=== PATIENT | female | born 1960 | race Caucasian/White ===

== ENCOUNTER 2024-03-08 22:22 | Inpatient (IN) ==
[2024-03-08] MEDS: OPTIRAY 320 125ml IV ONE (22:52)
[2024-03-08 23:02] LABS: Hematocrit (blood only) 35.5 % (37.0-47.0); Mean Corpuscular Hemoglobin 30.2 pg (25.0-34.0); Mean Corpuscular Hgb Conc 33.8 g/dL (32.0-36.0); Mean Corpuscular Volume 89.4 fL (80.0-100.0); Platelet Count 211 K/uL (130-400); RDW Standard Deviation 42.5 fL (36.4-46.3); Red Blood Count 3.97 M/uL (4.20-5.40); White Blood Count 6.41 K/ul (4.8-10.8)
[2024-03-08 23:05] LABS: iSTAT Creatinine 0.9 mg/dl (0.6-1.3); iSTAT Hemoglobin 11.9 g/dl (12.0-16.0); iSTAT Ionized Calcium 1.19 mmol/l (1.12-1.32); iSTAT Potassium 3.8 mmol/L (3.3-5.0)
[2024-03-08 23:18] LABS: Albumin Globulin Ratio 1.8 (0.9-2); Albumin Level 4.7 gm/dl (3.4-5.0); BUN Creatinine Ratio 15.3 (10-20); Bilirubin,Total 1.8 mg/dl (0.2-1.0); Calcium 9.5 mg/dl (8.6-10.3); Creatinine Clr Calc Pharmacy 66.8 ml/min; Est GFR (African American) 82.8 ml/min; Est GFR (Non-African American) 71.4 ml/min; Globulin 2.6 gm/dl (2.5-4.0); Magnesium 2.1 mg/dl (1.7-2.4); Potassium 3.8 mmol/L (3.5-5.1); Total Protein 7.3 gm/dl (6.0-8.3)
--- NOTE | 2024-03-08 23:19 | CT Scan Report ---
Exam(s): CT HEAD Without Contrast EXAM: CT Head Without Intravenous Contrast CLINICAL HISTORY: Neuro deficit, acute, stroke suspected. TECHNIQUE: Axial computed tomography images of the head/brain without intravenous contrast. CTDI is 36.31 mGy and DLP is 624.41 mGy-cm. Automated exposure control was utilized for the study. A dose lowering technique was utilized adhering to the principles of ALARA. COMPARISON: CT head 01/22/2023. FINDINGS: Brain: Cavernous and supraclinoid left internal carotid artery stent. Ventricle and sulci normal in size and configuration for age. No acute stroke. No acute hemorrhage. No abnormal extra-axial fluid collection. Ventricles: No hydrocephalus. No midline shift. Bones/joints: Unremarkable. No acute fracture. Soft tissues: Unremarkable. Sinuses: Unremarkable as visualized. No acute sinusitis. IMPRESSION: No acute stroke or hemorrhage. Cavernous and supraclinoid left internal carotid artery stent. Communications: Call Doctor Stroke Electronically signed by: Shahab Diaz M.D. 03/08/24 23:18 PM
[2024-03-08 23:35] LABS: Partial Thromboplastin Time 28 Seconds (21-31); Prothrombin Time 11.3 Seconds (9.0-12.0)
--- NOTE | 2024-03-08 23:39 | Emergency Department Note ---
Impression & Plan Stroke-like symptoms Admit to the [facility] ED Provider Note NAME: MUKUL MONTGOMERY AGE: 64 SEX: Female INFORMANT: Patient ED PROVIDER(S): Alma Rosa Tran DO CHIEF COMPLAINT: Right hand tingling and lightheadedness PLAN: Disposition: Admit to the [facility] MEDICAL DECISION MAKING: this is a 64-year-old female patient who presents to the emergency department after a sudden onset at 6:15 PM this evening of lightheadedness, right hand tingling and nausea. Patient has a history of internal carotid aneurysm with stent placement in April 2022. She was placed on Plavix after the procedure. 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 She had neurosurgical procedure in [place] at that time and was not left with any deficits. She was discharged to home on Brilinta and aspirin. Patient has been asymptomatic up until tonight when she developed these symptoms. On my evaluation of the patient, she continued to complain of lightheadedness/dizziness and a tingling sensation in both of her hands. On my physical exam, I noted the patient had right leg weakness and right arm drift. She was treated with IV Zofran for nausea. Laboratory workup was unremarkable. CT scan of the brain and CT angiograms of the brain and neck revealed no new acute findings. The patient was initially made a stroke alert. I opted not to use the [employer] telestroke program because the patient receives all of her care at [facility] and had recently been admitted to the ICU. The family was in agreement. I contacted the [facility] neurologist on-call and spoke with Dr. Jauregui who was able to access her chart. I reviewed the case with him and he felt the best course of action would be to admit the patient to [facility] and perform MRI of the brain and continue the patient on the Brilinta and aspirin. I [facility] the [facility] and [facility] will evaluate for further inpatient care. Care/management discussed with: Dr. Fairchild from neurology in [place], the corporate tax manager, the stat rad radiologist on 2 different occasions, [facility] here at [facility] Triage Nursing notes: reviewed and agree with them. Vital Signs: reviewed and unremarkable Additional History obtained from: Patient's daughter who was at the bedside Chronic Medical/Social Conditions affecting care: Carotid and cerebral aneurysm with stent placement at [facility] on Brilinta and aspirin; recent recurrent embolic stroke with thrombectomy Differential Diagnosis: Recurrent stroke, TIA, hypoglycemia Diagnostics, independently interpreted by me: ECG: normal sinus rhythm at a rate of [address] segment elevation or signs of ischemia. There is no ectopy. Cardiac Monitoring: Normal sinus rhythm at a rate of 75 Imaging studies: CT brain: See stat rad report CTA of the brain: See stat rad report CTA of the neck: See stat rad report HPI: 64 year old Female arrives for evaluation of stroke symptoms. Around 6:15 PM this evening, the patient was shopping when she noted some lightheadedness and right hand tingling. She then became nauseated and dizzy. Patient went home and took a shower and realized symptoms or not resolving. She has significant history of stroke and presents here for evaluation.. PAST MEDICAL HISTORY: See MDM, PAST SURGICAL HISTORY: Recent thrombectomy, [] SOCIAL HISTORY: Denies any drug or alcohol use HOME MEDICATIONS: See list ALLERGIES: None VITALS: See Below PHYSICAL EXAMINATION: HEENT: Head - normocephalic and atraumatic. Pupils are equal, round, and reactive to light. Extraocular eye muscles are intact and sclera are anicteric. Ears - bilaterally patent canals with noninjected tympanic membranes and no evidence of hemotympanum. Nose - moist nasal mucosa without discharge. Mouth - moist buccal mucosa. Oropharynx is nonerythematous and there is no tonsillar exudate or edema noted. Neck: Supple; no JVD, nuchal rigidity, cervical lymphadenopathy, or auscultated bruits. Heart: Regular rate and rhythm. There is a normal S1 and S2 with no murmurs, clicks, or gallops appreciated. Lungs: Clear to auscultation bilaterally with no wheezes, rales, or rhonchi. Abdomen: Soft, completely nontender, nondistended, with good bowel sounds. There are no palpable pulsatile masses or hepatosplenomegaly. There is no guarding, rigidity, or rebound noted. Extremities: No evidence of cyanosis, clubbing, or edema. There are easily palpable peripheral pulses. Neuro:The patient is awake and alert, oriented to day, time, and place. Muscle strength is 5/5 in all 4 extremities except for the right lower extremity where the patient is barely able to lift the right leg off of the bed. Muscle strength of the right hip is 1/5. She has barely able to bend the right knee. She has decreased sensation in the right hand. The patient has equal guide domestic tour strength and equal pedal push and pull. There are no cerebellar signs. Cranial nerves II through XII are grossly intact. Patient has positive pronator drift in the right upper extremity. She has normal [id number] with no past- pointing. Emergency department treatment: monitoring manager, IV Zofran Emergency department course: The patient was evaluated in room B-9. A complete history and physical was performed. Laboratory studies were drawn as above. A stroke alert was called. The patient went emergently for CT scan of the brain, CT angiogram of the brain and neck. Upon returning from radiology, the patient had Zofran for nausea. I immediately evaluated the patient and did a complete neurological exam. I opted to contact [facility] neurology on the patient's behalf to review her complicated case. I discussed the case with the [facility] Hospitalist and they will evaluate for further inpatient care. Past Med/Surg History Problem List (Updated 03/09/24 @ 15:51 by Alma Rosa Tran DO) Stroke-like symptoms (Acute) COVID-19 (Acute) Back strain (Acute) Spasm of back muscles (Acute) Cervical vertebral fracture COVID-19 (Acute) Medical History Back strain Cervical vertebral fracture Spasm of back muscles Social History Smoking Status: Never smoker Tobacco Type: Cigarettes Hx Alcohol Use: No Hx Substance Use: No Preferred Language: Martiniquais Communication Ability: Effective Creative Perfumer Required: No Beliefs That Will Affect Care: None Current Living Situation: Family Other Information That Helps Us Care for You: No Feels Safe at Home: Yes Safety Concerns: Feels Safe At This Time Assistive Devices: Glasses Allergies Allergies Allergy/AdvReac Type Severity Reaction Status Date / Time No Known Allergies Allergy Verified 03/09/24 00:18 Home Meds Home Medications Medication Instructions Recorded Confirmed acetaminophen 325 mg tablet 650 mg PO Q6H PRN Pain 03/09/24 03/09/24 (Tylenol) aspirin 81 mg chewable tablet 81 mg PO DAILY 03/09/24 03/09/24 atorvastatin 40 mg tablet 40 mg PO QPM 03/09/24 03/09/24 [id number]-[id number]-csvliqin 1 tab PO Q4H PRN Headache 03/09/24 03/09/24 50 mg-325 mg-40 mg tablet calcium carbonate 600 mg-vitamin 1 tab PO DAILY 03/09/24 03/09/24 D3 10 mcg (400 unit) tablet (Calcium 600 + D(3)) cholecalciferol (vitamin D3) 25 25 mcg PO DAILY 03/09/24 03/09/24 mcg (1,000 unit) capsule (Vitamin D3) morphine 15 mg immediate release 15 mg PO Q6H PRN Pain 03/09/24 03/09/24 tablet morphine 15 mg tablet,extended 15 mg PO Q12H PRN Pain 03/09/24 03/09/24 release ondansetron HCl 4 mg tablet 4 mg PO Q8H PRN NAUSEA/VOMITING 03/09/24 03/09/24 riboflavin (vitamin B2) 400 mg 400 mg PO DAILY 03/09/24 03/09/24 tablet ticagrelor 90 mg tablet (Brilinta) 90 mg PO BID 03/09/24 03/09/24 venlafaxine 37.5 mg 37.5 mg PO QAM 03/09/24 03/09/24 capsule,extended release 24 hr Results & Data (ED) Vital Signs Vital Signs - 24 hr 03/08/24 22:29 03/08/24 22:34 03/08/24 22:34 Temperature 36.1 C L Temperature Source Temporal Artery Scan Pulse Rate 74 77 Pulse Rate [Apical] Pulse Rhythm Regular Pulse Rhythm [Apical] Pulse Strength [Apical] Respiratory Rate 16 18 Respiratory Effort / Characteristics Non-Labored Spontaneous Respiratory Depth Normal Respiratory Pattern Regular Blood Pressure 121/84 Blood Pressure [Right Arm] Blood Pressure Mean 96 Blood Pressure Mean [Right Arm] Blood Pressure Position [Right Arm] Pulse Oximetry 96 95 95 Oxygen Delivery Method Room Air Room Air Room Air Sepsis Recent Fever Within 48 Hours No Sepsis New/Unexplained Change in Mental Status No Sepsis Action Taken by Nursing No Action Required 03/08/24 23:02 03/08/24 23:06 03/09/24 01:54 Temperature Temperature Source Pulse Rate 76 Pulse Rate [Apical] 79 77 Pulse Rhythm Pulse Rhythm [Apical] Regular Regular Pulse Strength [Apical] Normal Normal Respiratory Rate 18 18 Respiratory Effort / Characteristics Non-Labored Spontaneous Non-Labored Spontaneous Respiratory Depth Normal Normal Respiratory Pattern Regular Regular Blood Pressure Blood Pressure [Right Arm] 131/80 122/75 Blood Pressure Mean Blood Pressure Mean [Right Arm] 97 90 Blood Pressure Position [Right Arm] Lying Lying Pulse Oximetry 96 98 Oxygen Delivery Method Room Air Room Air Sepsis Recent Fever Within 48 Hours Sepsis New/Unexplained Change in Mental Status Sepsis Action Taken by Nursing 03/09/24 02:30 Temperature Temperature Source Pulse Rate Pulse Rate [Apical] 67 Pulse Rhythm Pulse Rhythm [Apical] Regular Pulse Strength [Apical] Normal Respiratory Rate 18 Respiratory Effort / Characteristics Non-Labored Spontaneous Respiratory Depth Normal Respiratory Pattern Regular Blood Pressure Blood Pressure [Right Arm] 121/82 Blood Pressure Mean Blood Pressure Mean [Right Arm] 95 Blood Pressure Position [Right Arm] Lying Pulse Oximetry 98 Oxygen Delivery Method Room Air Sepsis Recent Fever Within 48 Hours Sepsis New/Unexplained Change in Mental Status Sepsis Action Taken by Nursing Laboratory Data 03/09/24 05:46 03/09/24 05:46 Lab Results 03/08/24 03/08/24 Range/Units 22:46 22:52 WBC 6.41 (4.8-10.8) K/ul RBC 3.97 L (4.20-5.40) M/uL Hgb 12.0 (12.0-16.0) g/dl POC Hgb 11.9 L (12.0-16.0) g/dl Hct 35.5 L (37.0-47.0) % POC Hct 35 L (37-47) % MCV 89.4 (80.0-100.0) fL MCH 30.2 (25.0-34.0) pg MCHC 33.8 (32.0-36.0) g/dL RDW Std Deviation 42.5 (36.4-46.3) fL RDW Coeff of Marcela 13.0 (11.5-14.5) % Plt Count 211 (130-400) K/uL MPV 10.0 (9.4-12.4) fL PT 11.3 (9.0-12.0) Seconds INR 1.0 (0.9-1.1) APTT 28 (21-31) Seconds PTT Ratio 1.0 POC Sodium 136 (135-144) mmol/L Sodium 134 L (136-145) mmol/L POC Potassium 3.8 (3.3-5.0) mmol/L Potassium 3.8 (3.5-5.1) mmol/L POC Chloride 102 (101-112) mmol/L Chloride 103 (98-107) mmol/L Carbon Dioxide 24 (21-32) mmol/L POC Total CO2 22 L (24-31) mmol/L Anion Gap 7 (3-11) POC Anion Gap 17.0 (16-25) mmol/L POC BUN 12 (7-18) mg/dl BUN 13 (6-23) mg/dl Creatinine 0.85 (0.6-1.2) mg/dl POC Creatinine 0.9 (0.6-1.3) mg/dl Est Cr Clr Drug Dosing 66.8 ml/min Est GFR ( Amer) 82.8 ml/min Est GFR (Non-Af Amer) 71.4 ml/min BUN/Creatinine Ratio 15.3 (10-20) Glucose 132 H (70-99(Fasting)) mg/dl POC Glucose (other) 126 H (70-99) mg/dl Calcium 9.5 (8.6-10.3) mg/dl POC Ioniz Calcium Saroj 1.19 (1.12-1.32) mmol/l Magnesium 2.1 (1.7-2.4) mg/dl Total Bilirubin 1.8 H (0.2-1.0) mg/dl AST 23 (13-39) U/L ALT 15 (7-52) U/L Alkaline Phosphatase 63 (34-104) U/L Total Protein 7.3 (6.0-8.3) gm/dl Albumin 4.7 (3.4-5.0) gm/dl Globulin 2.6 (2.5-4.0) gm/dl Albumin/Globulin Ratio 1.8 (0.9-2) Administered Medications Aspirin (Aspirin 81 Mg Ectab) 81 mg PO DAILY RAFAL Stop: 04/08/24 08:59 Last Admin: 03/09/24 08:29 Dose: 81 mg Documented By: KT Calcium/Vitamin D (Calcium 600mg + Vit D 400 Iu Tab) 1 tab PO DAILY RAFAL Stop: 04/08/24 08:59 Last Admin: 03/09/24 08:29 Dose: 1 tab Documented By: NELL Sodium Chloride (Nss) 1,000 mls @ 80 mls/hr IV .[id number] RAFAL Stop: 03/09/24 16:26 Last Admin: 03/09/24 05:14 Dose: 80 mls/hr Documented By: LOLY Ticagrelor (Ticagrelor 90 Mg Tab) 90 mg PO BID RAFAL Stop: 04/08/24 08:59 Last Admin: 03/09/24 08:29 Dose: 90 mg Documented By: NELL Venlafaxine HCl (Venlafaxine Hcl Xr 37.5 Mg Capxr) 37.5 mg PO QAM RAFAL Stop: 04/08/24 08:59 Last Admin: 03/09/24 08:29 Dose: 37.5 mg Documented By: NELL Vitamin D (Cholecalciferol 25 Mcg (1000 Units) Tab) 25 mcg PO DAILY RAFAL Stop: 04/08/24 08:59 Last Admin: 03/09/24 08:29 Dose: 25 mcg Documented By: NELL Discontinued Medications Gadobutrol (Gadobutrol 65ml Vial) 8.5 ml IV ONCE ONE Stop: 03/09/24 09:38 Last Admin: 03/09/24 09:37 Dose: 8.5 ml Documented By: ТАТЬЯНА Hydroxyzine HCl (Hydroxyzine Hcl 25 Mg Tab) 25 mg PO NOW STA Stop: 03/09/24 04:57 Last Admin: 03/09/24 05:14 Dose: 25 mg Documented By: LOLY Hydroxyzine HCl (Hydroxyzine Hcl 25 Mg Tab) 25 mg PO NOW STA Stop: 03/09/24 05:19 Last Admin: 03/09/24 06:46 Dose: Not Given Documented By: MERARI Ioversol (Optiray 320 125ml) 125 ml IV ONCE ONE Stop: 03/08/24 22:52 Last Admin: 03/08/24 22:52 Dose: 118 ml Documented By: DONNA Melatonin (Melatonin 3 Mg Tab) 3 mg PO NOW STA Stop: 03/09/24 02:45 Last Admin: 03/09/24 04:44 Dose: Not Given Documented By: MERARI Ondansetron HCl (Ondansetron Inj 2 Mg/Ml 2 Ml Vial) 4 mg IV NOW STA Stop: 03/08/24 23:30 Last Admin: 03/08/24 23:51 Dose: 4 mg Documented By: IDD Imaging Data Radiologist's Impression: Chest X-Ray 03/08/24 22:33 XR chest 1V portable CLINICAL HISTORY: stroke alert TECHNIQUE: Single frontal radiograph of the chest was obtained. Comparison: Comparison is made to chest radiograph 01/22/2023 FINDINGS: No lines and tubes are seen. The cardiomediastinal silhouette is normal. The lungs are clear. No evidence of pleural effusion or pneumothorax. IMPRESSION: No acute chest disease. ACT 112: Negative or not required by law. Electronically signed by: Ruben Gutierrez M.D. 03/09/2024 8:51 AM Discharge Plan Visit Data Chief Complaint: Stroke/CVA Symptoms Stated Complaint: VERTIGO, NAUSEA, RT HAND TINGLING, STINT ED Provider: Alma Rosa Tran Discharge Problem: Stroke-like symptoms Patient Disposition: Admitted As Inpatient Discharge Instructions Interventions: ED Discharge Assessment Last Done: 03/09/24 12:54
[2024-03-08] MEDS: ONDANSETRON INJ 2 MG/ML 2 ML VIAL IV STA (23:51)
--- NOTE | 2024-03-08 23:53 | CT Scan Report ---
Exam(s): CTA HEAD With Contrast IV Amt: 118 ML OPTIRAY 320 EXAM: CT Angiography Head With Intravenous Contrast CLINICAL HISTORY: R hand numb,vertigo, hx stent/cva. TECHNIQUE: Axial computed tomographic angiography images of the head with intravenous contrast. CTDI is 22.84 mGy and DLP is 11.42 mGy-cm. Automated exposure control was utilized for the study. A dose lowering technique was utilized adhering to the principles of ALARA. 3D and MIP reconstructed images were created and reviewed. CONTRAST: Patient received 118 ML OPTIRAY 320 of IV contrast COMPARISON: CT Brain 03-08-2024. FINDINGS: Right internal carotid artery: No acute abnormality. Intracranial segment is patent with no significant stenosis. No aneurysm. Right anterior cerebral artery: Unremarkable. No occlusion or significant stenosis. No aneurysm. Right middle cerebral artery: Unremarkable. No occlusion or significant stenosis. No aneurysm. Right posterior cerebral artery: Unremarkable. No occlusion or significant stenosis. No aneurysm. Right vertebral artery: Unremarkable as visualized. Left internal carotid artery: Patent cavernous and supraclinoid left internal carotid artery stent. No aneurysm. Left anterior cerebral artery: Unremarkable. No occlusion or significant stenosis. No aneurysm. Left middle cerebral artery: Unremarkable. No occlusion or significant stenosis. No aneurysm. Left posterior cerebral artery: Unremarkable. No occlusion or significant stenosis. No aneurysm. Left vertebral artery: Unremarkable as visualized. Basilar artery: Unremarkable. No occlusion or significant stenosis. No aneurysm. IMPRESSION: No large vessel occlusion. Patent left internal carotid artery cavernous and supraclinoid segment stent. No aneurysm identified. Communications: Call Doctor Stroke Electronically signed by: Shahab Diaz M.D. 03/08/24 23:52 PM
--- NOTE | 2024-03-08 23:58 | CT Scan Report ---
Exam(s): CTA NECK With Contrast IV Amt: 118 ML OPTIRAY 320 EXAM: CT Angiography Neck With Intravenous Contrast CLINICAL HISTORY: R hand numb,vertigo, hx stent/cva. TECHNIQUE: Routine carotid CT angiography protocol was performed with intravenous contrast. NASCET criteria using the distal ICAs for comparison were used for evaluation of stenoses. CTDI is 12.49 mGy and DLP is 450.09 mGy-cm. Automated exposure control was utilized for the study. A dose lowering technique was utilized adhering to the principles of ALARA. 3D and MIP reconstructed images were created and reviewed. CONTRAST: Patient received 118 ML OPTIRAY 320 of IV contrast COMPARISON: CT cervical spine 02/24/2022. FINDINGS: VASCULATURE: Right common carotid artery: Unremarkable. No occlusion or significant stenosis. No dissection. Right internal carotid artery: Mild calcified plaque at the right carotid bulb without a hemodynamically significant stenosis. No dissection. Right external carotid artery: Unremarkable. No occlusion. Right vertebral artery: Unremarkable. No occlusion or significant stenosis. No dissection. Left common carotid artery: Unremarkable. No occlusion or significant stenosis. No dissection. Left internal carotid artery: Unremarkable. Extracranial segment is patent with no occlusion or significant stenosis. No dissection. Left external carotid artery: Unremarkable. No occlusion. Left vertebral artery: Unremarkable. No occlusion or significant stenosis. No dissection. NECK: Bones/joints: Extensive anterior and posterior fusion hardware including a corpectomy at C5 and mild wedge compression deformities of T3 and T4.. No acute fracture. Soft tissues: Unremarkable. Lung apices: Clear. CAROTID STENOSIS REFERENCE USING NASCET CRITERIA: % ICA stenosis = (1 - narrowest ICA diameter/diameter of distal cervical ICA) x 100. Mild - <50% stenosis. Moderate - 50-69% stenosis. Severe - 70-94% stenosis. Near occlusion - 95-99% stenosis. Occluded - 100% stenosis. IMPRESSION: No hemodynamically significant stenosis. Communications: Call Doctor Stroke Electronically signed by: Shahab Diaz M.D. 03/08/24 23:57 PM
[2024-03-09] MEDS ORDERED: PHARMACIST DISCHARGE MED REC CONSULT PRN (03:57)
[2024-03-09] MEDS ORDERED: NITROGLYCERIN SL 0.4 MG/TAB TAB SL PRN (03:57)
[2024-03-09] MEDS ORDERED: ONDANSETRON INJ 2 MG/ML 2 ML VIAL IV PRN (03:57)
[2024-03-09] MEDS: MELATONIN 3 MG TAB PO STA (04:44)
--- NOTE | 2024-03-09 05:06 | History & Physical Report ---
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 " Per neurosurgery notes in epic patient underwent second endovascular treatment of aneurysm with a second overlapping diverting stent placed on 08/28/2023 and she was on aspirin and Plavix. Patient had angiogram on 01/10/2024 with no evidence of in-stent stenosis or thrombosis and it was decided to stop Plavix and continue aspirin. On 02/01/2024 she presented to [facility] with signs of acute ischemic stroke. Patient reported slu rred speech and headaches which are going on for 1-1 and half weeks since Plavix was stopped. Emergent cerebral angiogram done which showed in-stent thrombosis and proceeded with successful mechanical thrombectomy and following the procedure her speech recovered well. Brain MRI showed no evidence of ischemic injury. She was started back on Plavix but was not responsive with elevated PRU level and therefore started on Brilinta 90 mg twice daily and continued aspirin 81 mg p.o. daily. Patient seem to suffer from occasional headaches or complaint accompanied by nausea." Today she was in the grocery store while she was walking she suddenly felt dizzy and felt like passing out and numbness in the right hand. She ambulated holding the cart. Somehow came home, and called neurosurgery and was advised to come to the ER. Later she also developed right lower extremity weakness. Initial CT head and CTA head and neck were unremarkable. ER talked with the [facility] neurology on-call Dr. Khari Gastelum who recommended patient to admitted for MRI and PT OT evaluation and to continue current antiplatelet regimen. And also recommended to do bedside dysphagia screen and speech evaluation and lipid profile and HbA1c levels. Patient currently resting comfortably. Still has right hand numbness and paresthesias and right lower extremity weakness. Speech is okay. No facial droop. Able to give her history. Complains of some headaches. Patient states since last episode in [place] she is having Vision issues and supposed to see eye doctor. No fevers. No sore throat. Currently no chest pain. When the episode happened today she was breathing heavily. Currently no nausea. No abdominal pain. Normal bowel and bladder movements. Hemodynamics are okay. Strokelike symptoms Some numbness in right hand and weakness in the right lower extremity Initial workup with CT head and CTA head and neck unremarkable Patent left internal carotid artery cavernous and supraclinoid segment stent S/p stents as mentioned in H&P ER discussed with neurology on-call at [place] To continue her home aspirin and Brilinta and statin Will follow MRI scan and echo Telemetry PT OT Speech evaluation Will follow lipid profile HbA1c levels Neurology consult in a.m. for further recommendations Chronic pain Continue home pain medications Hyperlipidemia Statin DVT prophylaxis SCDs for now Disposition Telemetry Full code. 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 " Per neurosurgery notes in epic patient underwent second endovascular treatment of aneurysm with a second overlapping diverting stent placed on 08/28/2023 and she was on aspirin and Plavix. Patient had angiogram on 01/10/2024 with no evidence of in-stent stenosis or thrombosis and it was decided to stop Plavix and continue aspirin. On 02/01/2024 she presented to [facility] with signs of acute ischemic stroke. Patient reported slurred speech and headaches which are going on for 1-1 and half weeks since Plavix was stopped. Emergent cerebral angiogram done which showed in-stent thrombosis and proceeded with successful mechanical thrombectomy and following the procedure her speech recovered well. Brain MRI showed no evidence of isch emic injury. She was started back on Plavix but was not responsive with elevated PRU level and therefore started on Brilinta 90 mg twice daily and continued aspirin 81 mg p.o. daily. Patient seem to suffer from occasional headaches or complaint accompanied by nausea." Today she was in the grocery store while she was walking she suddenly felt dizzy and felt like passing out and numbness in the right hand. She ambulated holding the cart. Somehow came home, and called neurosurgery and was advised to come to the ER. Later she also developed right lower extremity weakness. Initial CT head and CTA head and neck were unremarkable. ER talked with the [facility] neurology on-call Dr. Khari Gastelum who recommended patient to admitted for MRI and PT OT evaluation and to continue current antiplatelet regimen. And also recommended to do bedside dysphagia screen and speech evaluation and lipid profile and HbA1c levels. Patient currently resting comfortably. Still has right hand numbness and paresthesias and right lower extremity weakness. Speech is okay. No facial droop. Able to give her history. Complains of some headaches. Patient states since last episode in [place] she is having Vision issues and supposed to see eye doctor. No fevers. No sore throat. Currently no chest pain. When the episode happened today she was breathing heavily. Currently no nausea. No abdominal pain. Normal bowel and bladder movements. Hemodynamics are okay. Past medical history. As mentioned above Past surgical history. Carotid internal catheter placement. Vertebral artery catheter placement. Cholecystectomy and hysterectomy Social history. Former smoker. No alcohol use. No drug use. Family history. Father side had heart disease. Mother had diabetes Allergies Allergy/AdvReac Type Severity Reaction Status Date / Time No Known Allergies Allergy Verified 03/09/24 00:18 Home Medications Medication Instructions Recorded Confirmed Type acetaminophen 325 mg tablet 650 mg PO Q6H PRN Pain 03/09/24 03/09/24 History (Tylenol) aspirin 81 mg chewable tablet 81 mg PO DAILY 03/09/24 03/09/24 History atorvastatin 40 mg tablet 40 mg PO QPM 03/09/24 03/09/24 History jtkyrbihga-yogezplaequrp-sjppmnvz 1 tab PO Q4H PRN Headache 03/09/24 03/09/24 History 50 mg-325 mg-40 mg tablet calcium carbonate 600 mg-vitamin 1 tab PO DAILY 03/09/24 03/09/24 History D3 10 mcg (400 unit) tablet (Calcium 600 + D(3)) cholecalciferol (vitamin D3) 25 25 mcg PO DAILY 03/09/24 03/09/24 History mcg (1,000 unit) capsule (Vitamin D3) morphine 15 mg immediate release 15 mg PO Q6H PRN Pain 03/09/24 03/09/24 History tablet morphine 15 mg tablet,extended 15 mg PO Q12H PRN Pain 03/09/24 03/09/24 History release ondansetron HCl 4 mg tablet 4 mg PO Q8H PRN NAUSEA/VOMITING 03/09/24 03/09/24 History riboflavin (vitamin B2) 400 mg 400 mg PO DAILY 03/09/24 03/09/24 History tablet ticagrelor 90 mg tablet (Brilinta) 90 mg PO BID 03/09/24 03/09/24 History venlafaxine 37.5 mg 37.5 mg PO QAM 03/09/24 03/09/24 History capsule,extended release 24 hr Past Med/Surg History Problem List (Updated 03/09/24 @ 05:23 by Froilan Gomez MD) Stroke-like symptoms COVID-19 (Acute) Back strain (Acute) Spasm of back muscles (Acute) Cervical vertebral fracture COVID-19 (Acute) Medical History Back strain Cervical vertebral fracture Spasm of back muscles Social History Smoking Status: Never smoker Tobacco Type: Cigarettes Hx Alcohol Use: No Hx Substance Use: No Preferred Language: Uzbek Communication Ability: Effective Network Support Manager Required: No Beliefs That Will Affect Care: None Current Living Situation: Family Other Information That Helps Us Care for You: No Feels Safe at Home: Yes Safety Concerns: Feels Safe At This Time Assistive Devices: Glasses Review of Systems Review of Systems: All systems reviewed & are unremarkable except as noted in HPI & below Physical Exam Physical Exam: General- Not in distress. Head- atraumatic Eyes- PERRL. ENT- oropharynx clear Neck- supple, no JVD. Lungs- clear to auscultation no wheezing or crackles Heart- regular rate and rhythm; no murmur, no gallop Abdomen- normal bowel sounds, soft, nontender, no distension. Extremities- no pretibial edema, no erythema seen Neuro- alert, oriented ; PERRL, no facial palsy; no dysarthria; tounge midline power 5/5 in all extremities except right lower extremity, right lower ext power 1-2/5; no pronator drift; coordination of movements normal, sensations intact, position sense intact Skin- warm & dry Results & Data Results & Data Vital Signs (Past 12 Hours) Vital Signs Temp Pulse Pulse Resp BP BP Pulse Ox 03/09/24 01:54 77 18 122/75 98 03/08/24 23:06 76 03/08/24 23:02 79 18 131/80 96 03/08/24 22:34 77 18 95 03/08/24 22:34 95 03/08/24 22:29 36.1 C L 74 16 121/84 96 O2 Del Method 03/09/24 01:54 Room Air 03/08/24 23:06 03/08/24 23:02 Room Air 03/08/24 22:34 Room Air 03/08/24 22:34 Room Air 03/08/24 22:29 Room Air Diagnostic Findings Laboratory Results WBC 6.41 K/ul (4.8-10.8) 03/08/24 22:46 RBC 3.97 M/uL (4.20-5.40) L 03/08/24 22:46 Hgb 12.0 g/dl (12.0-16.0) 03/08/24 22:46 POC Hgb 11.9 g/dl (12.0-16.0) L 03/08/24 22:52 Hct 35.5 % (37.0-47.0) L 03/08/24 22:46 POC Hct 35 % (37-47) L 03/08/24 22:52 MCV 89.4 fL (80.0-100.0) 03/08/24 22:46 MCH 30.2 pg (25.0-34.0) 03/08/24 22:46 MCHC 33.8 g/dL (32.0-36.0) 03/08/24 22:46 RDW Std Deviation 42.5 fL (36.4-46.3) 03/08/24 22:46 RDW Coeff of Marcela 13.0 % (11.5-14.5) 03/08/24 22:46 Plt Count 211 K/uL (130-400) 03/08/24 22:46 MPV 10.0 fL (9.4-12.4) 03/08/24 22:46 PT 11.3 Seconds (9.0-12.0) 03/08/24 22:46 INR 1.0 (0.9-1.1) 03/08/24 22:46 APTT 28 Seconds (21-31) 03/08/24 22:46 PTT Ratio 1.0 03/08/24 22:46 POC Sodium 136 mmol/L (135-144) 03/08/24 22:52 Sodium 134 mmol/L (136-145) L 03/08/24 22:46 POC Potassium 3.8 mmol/L (3.3-5.0) 03/08/24 22:52 Potassium 3.8 mmol/L (3.5-5.1) 03/08/24 22:46 POC Chloride 102 mmol/L (101-112) 03/08/24 22:52 Chloride 103 mmol/L (98-107) 03/08/24 22:46 Carbon Dioxide 24 mmol/L (21-32) 03/08/24 22:46 POC Total CO2 22 mmol/L (24-31) L 03/08/24 22:52 Anion Gap 7 (3-11) 03/08/24 22:46 POC Anion Gap 17.0 mmol/L (16-25) 03/08/24 22:52 POC BUN 12 mg/dl (7-18) 03/08/24 22:52 BUN 13 mg/dl (6-23) 03/08/24 22:46 Creatinine 0.85 mg/dl (0.6-1.2) 03/08/24 22:46 POC Creatinine 0.9 mg/dl (0.6-1.3) 03/08/24 22:52 Est Cr Clr Drug Dosing 66.8 ml/min 03/08/24 22:46 Est GFR ( Amer) 82.8 ml/min 03/08/24 22:46 Est GFR (Non-Af Amer) 71.4 ml/min 03/08/24 22:46 BUN/Creatinine Ratio 15.3 (10-20) 03/08/24 22:46 Glucose 132 mg/dl (70-99(Fasting)) H 03/08/24 22:46 POC Glucose (other) 126 mg/dl (70-99) H 03/08/24 22:52 Calcium 9.5 mg/dl (8.6-10.3) 03/08/24 22:46 POC Ioniz Calcium Saroj 1.19 mmol/l (1.12-1.32) 03/08/24 22:52 Magnesium 2.1 mg/dl (1.7-2.4) 03/08/24 22:46 Total Bilirubin 1.8 mg/dl (0.2-1.0) H 03/08/24 22:46 AST 23 U/L (13-39) 03/08/24 22:46 ALT 15 U/L (7-52) 03/08/24 22:46 Alkaline Phosphatase 63 U/L (34-104) 03/08/24 22:46 Total Protein 7.3 gm/dl (6.0-8.3) 03/08/24 22:46 Albumin 4.7 gm/dl (3.4-5.0) 03/08/24 22:46 Globulin 2.6 gm/dl (2.5-4.0) 03/08/24 22:46 Albumin/Globulin Ratio 1.8 (0.9-2) 03/08/24 22:[address] 03/08/24 22:33 CR Exam(s): CT HEAD Without Contrast EXAM: CT Head Without Intravenous Contrast CLINICAL HISTORY: Neuro deficit, acute, stroke suspected. TECHNIQUE: Axial computed tomography images of the head/brain without intravenous contrast. CTDI is 36.31 mGy and DLP is 624.41 mGy-cm. Automated exposure control was utilized for the study. A dose lowering technique was utilized adhering to the principles of ALARA. COMPARISON: CT head 01/22/2023. FINDINGS: Brain: Cavernous and supraclinoid left internal carotid artery stent. Ventricle and sulci normal in size and configuration for age. No acute stroke. No acute hemorrhage. No abnormal extra-axial fluid collection. Ventricles: No hydrocephalus. No midline shift. Bones/joints: Unremarkable. No acute fracture. Soft tissues: Unremarkable. Sinuses: Unremarkable as visualized. No acute sinusitis. IMPRESSION: No acute stroke or hemorrhage. Cavernous and supraclinoid left internal carotid artery stent. Communications: Call Doctor Stroke Electronically signed by: Shahab Diaz M.D. 03/08/24 23:18 PM Head CTA 03/08/24 22:36 CR Exam(s): CTA HEAD With Contrast IV Amt: 118 ML OPTIRAY 320 EXAM: CT Angiography Head With Intravenous Contrast CLINICAL HISTORY: R hand numb,vertigo, hx stent/cva. TECHNIQUE: Axial computed tomographic angiography images of the head with intravenous contrast. CTDI is 22.84 mGy and DLP is 11.42 mGy-cm. Automated exposure control was utilized for the study. A dose lowering technique was utilized adhering to the principles of ALARA. 3D and MIP reconstructed images were created and reviewed. CONTRAST: Patient received 118 ML OPTIRAY 320 of IV contrast COMPARISON: CT Brain 03-08-2024. FINDINGS: Right internal carotid artery: No acute abnormality. Intracranial segment is patent with no significant stenosis. No aneurysm. Right anterior cerebral artery: Unremarkable. No occlusion or significant stenosis. No aneurysm. Right middle cerebral artery: Unremarkable. No occlusion or significant stenosis. No aneurysm. Right posterior cerebral artery: Unremarkable. No occlusion or significant stenosis. No aneurysm. Right vertebral artery: Unremarkable as visualized. Left internal carotid artery: Patent cavernous and supraclinoid left internal carotid artery stent. No aneurysm. Left anterior cerebral artery: Unremarkable. No occlusion or significant stenosis. No aneurysm. Left middle cerebral artery: Unremarkable. No occlusion or significant stenosis. No aneurysm. Left posterior cerebral artery: Unremarkable. No occlusion or significant stenosis. No aneurysm. Left vertebral artery: Unremarkable as visualized. Basilar artery: Unremarkable. No occlusion or significant stenosis. No aneurysm. IMPRESSION: No large vessel occlusion. Patent left internal carotid artery cavernous and supraclinoid segment stent. No aneurysm identified. Communications: Call Doctor Stroke Electronically signed by: Shahab Diaz M.D. 03/08/24 23:52 PM Neck CTA 03/08/24 22:36 CR Exam(s): CTA NECK With Contrast IV Amt: 118 ML OPTIRAY 320 EXAM: CT Angiography Neck With Intravenous Contrast CLINICAL HISTORY: R hand numb,vertigo, hx stent/cva. TECHNIQUE: Routine carotid CT angiography protocol was performed with intravenous contrast. NASCET criteria using the distal ICAs for comparison were used for evaluation of stenoses. CTDI is 12.49 mGy and DLP is 450.09 mGy-cm. Automated exposure control was utilized for the study. A dose lowering technique was utilized adhering to the principles of ALARA. 3D and MIP reconstructed images were created and reviewed. CONTRAST: Patient received 118 ML OPTIRAY 320 of IV contrast COMPARISON: CT cervical spine 02/24/2022. FINDINGS: VASCULATURE: Right common carotid artery: Unremarkable. No occlusion or significant stenosis. No dissection. Right internal carotid artery: Mild calcified plaque at the right carotid bulb without a hemodynamically significant stenosis. No dissection. Right external carotid artery: Unremarkable. No occlusion. Right vertebral artery: Unremarkable. No occlusion or significant stenosis. No dissection. Left common carotid artery: Unremarkable. No occlusion or significant stenosis. No dissection. Left internal carotid artery: Unremarkable. Extracranial segment is patent with no occlusion or significant stenosis. No dissection. Left external carotid artery: Unremarkable. No occlusion. Left vertebral artery: Unremarkable. No occlusion or significant stenosis. No dissection. NECK: Bones/joints: Extensive anterior and posterior fusion hardware including a corpectomy at C5 and mild wedge compression deformities of T3 and T4.. No acute fracture. Soft tissues: Unremarkable. Lung apices: Clear. CAROTID STENOSIS REFERENCE USING NASCET CRITERIA: % ICA stenosis = (1 - narrowest ICA diameter/diameter of distal cervical ICA) x 100. Mild - <50% stenosis. Moderate - 50-69% stenosis. Severe - 70-94% stenosis. Near occlusion - 95-99% stenosis. Occluded - 100% stenosis. IMPRESSION: No hemodynamically significant stenosis. Communications: Call Doctor Stroke Electronically signed by: Shahab Diaz M.D. 03/08/24 23:57 PM ECG Additional Comments: ECG accelerated junctional rhythm with Rate of 73 Left axis deviation. QTc 429 Code Status & VTE Plan VTE Prophylaxis Plan VTE Prophylaxis will be ordered: Yes
[2024-03-09] MEDS: SODIUM CHLORIDE 0.9% 1,000 ML IV SCH (05:14)
[2024-03-09] MEDS: hydrOXYzine HCl 25 MG TAB PO STA ×2 (05:14→06:46)
[2024-03-09] MEDS ORDERED: MELATONIN 3 MG TAB PO PRN (05:17)
[2024-03-09 06:03] LABS: Basophils # (auto) 0.03 K/uL (0.00-0.20); Basophils % (auto) 0.6 %; Eosinophils # (auto) 0.17 K/uL (0.00-0.50); Eosinophils % (auto) 3.6 %; Hematocrit (blood only) 33.4 % (37.0-47.0); Hemoglobin 11.3 g/dl (12.0-16.0); Immature Granulocytes # (auto) 0.01 K/uL (0.01-0.20); Immature Granulocytes % (auto) 0.2 %; Lymphocytes # (auto) 1.07 K/uL (1.20-3.40); Lymphocytes % (auto) 22.9 %; Mean Corpuscular Hemoglobin 30.8 pg (25.0-34.0); Mean Corpuscular Hgb Conc 33.8 g/dL (32.0-36.0); Monocytes # (auto) 0.47 K/uL (0.11-0.59); Neutrophils # (auto) 2.93 K/uL (1.40-6.50); Neutrophils % (auto) 62.7 %; Platelet Count 190 K/uL (130-400); RDW Coefficient of Variation 12.9 % (11.5-14.5); RDW Standard Deviation 42.8 fL (36.4-46.3); Red Blood Count 3.67 M/uL (4.20-5.40); White Blood Count 4.68 K/ul (4.8-10.8)
[2024-03-09 06:24] LABS: BUN Creatinine Ratio 14.3 (10-20); Calcium 8.7 mg/dl (8.6-10.3); Creatinine Clr Calc Pharmacy 90.1 ml/min; Est GFR (African American) 108.3 ml/min; Est GFR (Non-African American) 93.5 ml/min; Potassium 3.5 mmol/L (3.5-5.1)
--- NOTE | 2024-03-09 06:39 | Electrocardiogram Report ---
Test Reason : Blood Pressure : / mmHG Vent. Rate : 073 BPM Atrial Rate : 000 BPM P-R Int : 000 ms QRS Dur : 076 ms QT Int : 390 ms P-R-T Axes : 000 -33 044 degrees QTc Int : 429 ms Normal sinus rhythm Left axis deviation Incomplete right bundle branch block Poor R wave progression, consider anterior MD vs. lead placement vs. LVH Minimal voltage criteria for LVH, may be normal variant Abnormal ECG Confirmed by Luca Son ([id number]) on 03/09/2024 6:38:59 AM Referred By: REFERRED SELF Confirmed By:Sivakumar Son
[2024-03-09 08:02] LABS: Estimated Average Glucose 111 mg/dl; Hemoglobin A1C 5.5 % (4.5-5.6)
[2024-03-09] MEDS: TICAGRELOR 90 MG TAB PO SCH (08:29)
[2024-03-09] MEDS: CHOLECALCIFEROL 25 MCG (1000 UNITS) TAB PO SCH (08:29)
[2024-03-09] MEDS: VENLAFAXINE HCL XR 37.5 MG CAPXR PO SCH (08:29)
[2024-03-09] MEDS: CALCIUM 600MG + VIT D 400 IU TAB PO SCH (08:29)
[2024-03-09] MEDS: ASPIRIN 81 MG ECTAB PO SCH (08:29)
--- NOTE | 2024-03-09 08:54 | XRay Report ---
XR chest 1V portable CLINICAL HISTORY: stroke alert TECHNIQUE: Single frontal radiograph of the chest was obtained. Comparison: Comparison is made to chest radiograph 01/22/2023 FINDINGS: No lines and tubes are seen. The cardiomediastinal silhouette is normal. The lungs are clear. No evid ence of pleural effusion or pneumothorax. IMPRESSION: No acute chest disease. ACT 112: Negative or not required by law. Electronically signed by: Ruben Gutierrez M.D. 03/09/2024 8:51 AM
[2024-03-09] MEDS ORDERED: NON-FORMULARY MEDICATION (Riboflavin (Vitamin B2) 400 mg Tablet) PO SCH (09:00)
[2024-03-09] MEDS: GADOBUTROL 65ML VIAL IV ONE (09:37)
--- NOTE | 2024-03-09 10:13 | Magnetic Resonance Report ---
MR brain wo/w con CLINICAL HISTORY: stroke like symptoms TECHNIQUE: Multiplanar and multisequence MR images of the brain were obtained prior to and following administration of gadolinium contrast. Comparison: Comparison is made to CT head 03/08/2024 FINDINGS: No abnormal restricted diffusion is identified. The white matter is unremarkable. The ventricular sys tem is normal in appearance. No mass or abnormal enhancement is seen. There is no mass effect or midl ine shift. There is no evidence of acute intraparenchymal hemorrhage. No extra axial fluid collection s are seen. The corpus callosum, pituitary gland, and cerebellar tonsils appear grossly unremarkable. Flow voids of the major intracranial arterial vessels are identified. The imaged portions of the para nasal sinuses, mastoid air cells, and orbits are unremarkable. IMPRESSION: No acute abnormalities. ACT 112: Negative or not required by law. Electronically signed by: Ruben Gutierrez M.D. 03/09/2024 10:12 AM
--- NOTE | 2024-03-09 12:01 | Communication Note ---
Date of Service: March 09, 2024 Evaluated at bedside Still with slurred speech and RUE/RLE paresthesias. Denies palpitations, chest pain or other acute concerns. Vs stable MRI w/wo reviewed without any signs of infarct ECHO EF 60-65%, GIDD, no ASD #Stroke-like symptoms MRI normal A1c 5.5, LDL 10 Tick bourne serologies ordered TSH, b12, folate ordered PT/OT #Carotid artery stenosis s/p stent continue Brilinta/asa on statin rest of plan per HP
[2024-03-09 13:10] LABS: Folate (Folic Acid),Ser orPlas > 22.30 ng/ml (>5.38)
[2024-03-09 13:11] LABS: Vitamin B12 514 pg/ml (180-914)
--- NOTE | 2024-03-09 15:53 | Neurology Consultation ---
Date of Consultation March 09, 2024 Assessment & Plan (1) Stroke-like symptoms: MRI brain reveals no evidence of acute ischemic stroke Recommend obtain MRI cervical and thoracic spine with and without contrast to rule out possible ongoing demyelination Recommend continued stroke work up to include the following: Echocardiogram as part of complete stroke workup Continue frequent neurological assessments Obtain stat CT brain without contrast for any acute neurological decline Continue to monitor/control blood pressure & blood glucose Continue to monitor telemetry closely Recommend ZioPatch at DC if no evidence of arrhythmia during inpatient monitoring Continue to monitor renal and hepatic function, keep euvolemic Metabolic workup should include hgbA1c, fasting lipids, homocysteine, TSH, D Dimer, RPR, urinalysis Recommend continue current regimen of antiplatelet therapy Recommend high dose statin therapy indefinitely if tolerated Ok from neurology perspective for VTE prophylaxis PT/OT/SLT to eval and treat Recommend eval for MARCELINO and consider outpatient polysomnography Telehealth Consultation Telehealth Information Telehealth Information: I performed this visit using a real-time telehealth connection between my location and the patients location ([facility]). After connecting through interactive tele-video, patient was identified by name and date of and/or wristband check.Patient (or authorized healthcare commercial representative) was informed that this was a telemedicine visit and it was being conducted confidentially over secure lines. My office door was closed and no one else was present in the room with me.Patient (or authorized healthcare commercial representative) provided consent to proceed with the visit, expressed an understanding of privacy and security of the telemedicine visit, and gave permission to have a hospital commercial representative in the room in order to assist with the visit and to conduct portions of the visit, as needed. I informed the patient (or authorized healthcare commercial representative) that I reviewed their record and presented the opportunity for them to ask any questions regarding the visit today. The patient agreed to participate. History of Present Illness Reason for Consultation: Stroke like symptoms Attending Physician: Deyanira Guan MD History of Present Illness 64yo right handed female with reports hx of stroke in January 2024 noting she underwent stenting in left ICA in April 2022 per her own account, presented with complaint of RUE- hand numbness and RLE weakness as well as reported feeling dizzy. She has undergone stroke imaging including CT brain without contrast, personally reviewed, revealing no overt evidence of hemorrhage. CT angiographic studies of head and neck, also personally reviewed, reveal no overt evidence of large vessel occlusion or significant/flow limiting stenosis.She has undergone MRI brain with and without contrast also personally reviewed revealing no evidence of ischemic stroke and/or acute intracranial process. I have performed televideo consultation. She is alert & oriented; able to answer all questions appropriately, name objects on televideo monitor, repeat phrases and perform complex/embedded commands without deficit. Neurological exam reveals slight drift RUE, notable RLE weakness and continued report of right hand and leg paresthesia. Agree with continued antiplatelet and statin therapy. Continue stroke workup. Recommend obtain MRI cervical and thoracic spine with and without contrast. Allergies Allergy/AdvReac Type Severity Reaction Status Date / Time No Known Allergies Allergy Verified 03/09/24 00:18 Home Medications Medication Instructions Recorded Confirmed Type acetaminophen 325 mg tablet 650 mg PO Q6H PRN Pain 03/09/24 03/09/24 History (Tylenol) aspirin 81 mg chewable tablet 81 mg PO DAILY 03/09/24 03/09/24 History atorvastatin 40 mg tablet 40 mg PO QPM 03/09/24 03/09/24 History vjqkssdnnh-oedcdousnrzxd-tadwtxta 1 tab PO Q4H PRN Headache 03/09/24 03/09/24 History 50 mg-325 mg-40 mg tablet calcium carbonate 600 mg-vitamin 1 tab PO DAILY 03/09/24 03/09/24 History D3 10 mcg (400 unit) tablet (Calcium 600 + D(3)) cholecalciferol (vitamin D3) 25 25 mcg PO DAILY 03/09/24 03/09/24 History mcg (1,000 unit) capsule (Vitamin D3) morphine 15 mg immediate release 15 mg PO Q6H PRN Pain 03/09/24 03/09/24 History tablet morphine 15 mg tablet,extended 15 mg PO Q12H PRN Pain 03/09/24 03/09/24 History release ondansetron HCl 4 mg tablet 4 mg PO Q8H PRN NAUSEA/VOMITING 03/09/24 03/09/24 History riboflavin (vitamin B2) 400 mg 400 mg PO DAILY 03/09/24 03/09/24 History tablet ticagrelor 90 mg tablet (Brilinta) 90 mg PO BID 03/09/24 03/09/24 History venlafaxine 37.5 mg 37.5 mg PO QAM 03/09/24 03/09/24 History capsule,extended release 24 hr Patient History Medical History Back strain Cervical vertebral fracture Spasm of back muscles Social History Smoking Status: Never smoker Tobacco Type: Cigarettes Hx Alcohol Use: No Hx Substance Use: No Preferred Language: Chadian Communication Ability: Effective Jacquard Card Cutter Required: No Beliefs That Will Affect Care: None Current Living Situation: Family Other Information That Helps Us Care for You: No Feels Safe at Home: Yes Safety Concerns: Feels Safe At This Time Assistive Devices: Glasses Physical Exam Neurological Examination: Mental Status: Awake and alert. Oriented to person, place, and time. Fluency naming repetition and comprehension appear grossly intact. Affect remains appropriate. CN testing: I: Denies changes in ability to smell II:Reports no changes in visual acuity III/IV/: No evidence of gaze preference, hippus, nystagmus or roving eye movements V: Facial sensation reportedly grossly intact to light touch bilaterally VII: Facial movements appear without evidence of asymmetry VIII: Hearing appears grossly intact to loud voice bilaterally IX/X: Palate appears to elevate symmetrically XI: Shoulder shrug appears symmetric/ grossly intact bilaterally XII: Tongue protrudes midline without evidence of biting Motor exam: Right hemiparesis Sensory: Reports persistent right hemiparesthesia Coordination: Deferred Reflexes: Deferred Gait: Deferred Results & Data Vital Signs (Past 12 Hours) Vital Signs Temp Pulse Pulse Resp BP BP Pulse Ox 03/09/24 14:49 36.8 C 67 16 120/80 96 03/09/24 13:10 36.5 C 80 18 139/82 96 03/09/24 13:00 66 03/09/24 05:44 69 18 105/62 98 03/09/24 03:57 Pulse Ox O2 Del Method O2 Del Method 03/09/24 14:49 Room Air 03/09/24 13:10 Room Air 03/09/24 13:00 03/09/24 05:44 Room Air 03/09/24 03:57 98 Room Air Laboratory Results Abnormal lab results 03/08/24 03/08/24 03/09/24 Range/Units 22:46 22:52 05:46 WBC 4.68 L (4.8-10.8) K/ul RBC 3.97 L 3.67 L (4.20-5.40) M/uL Hgb 11.3 L (12.0-16.0) g/dl POC Hgb 11.9 L (12.0-16.0) g/dl Hct 35.5 L 33.4 L (37.0-47.0) % POC Hct 35 L (37-47) % Lymph # (Auto) 1.07 L (1.20-3.40) K/uL Sodium 134 L (136-145) mmol/L POC Total CO2 22 L (24-31) mmol/L Glucose 132 H 105 H (70-99(Fasting)) mg/dl POC Glucose (other) 126 H (70-99) mg/dl Total Bilirubin 1.8 H (0.2-1.0) mg/dl Triglycerides 154 H (0-150) mg/dl VLDL Cholesterol, Calc 31 H (0-30) mg/dl Diagnostic Findings Chest X-Ray 03/08/24 22:33 XR chest 1V portable CLINICAL HISTORY: stroke alert TECHNIQUE: Single frontal radiograph of the chest was obtained. Comparison: Comparison is made to chest radiograph 01/22/2023 FINDINGS: No lines and tubes are seen. The cardiomediastinal silhouette is normal. The lungs are clear. No evidence of pleural effusion or pneumothorax. IMPRESSION: No acute chest disease. ACT 112: Negative or not required by law. Electronically signed by: Ruben Gutierrez M.D. 03/09/2024 8:[address] 03/08/24 22:33 CR Exam(s): CT HEAD Without Contrast EXAM: CT Head Without Intravenous Contrast CLINICAL HISTORY: Neuro deficit, acute, stroke suspected. TECHNIQUE: Axial computed tomography images of the head/brain without intravenous contrast. CTDI is 36.31 mGy and DLP is 624.41 mGy-cm. Automated exposure control was utilized for the study. A dose lowering technique was utilized adhering to the principles of ALARA. COMPARISON: CT head 01/22/2023. FINDINGS: Brain: Cavernous and supraclinoid left internal carotid artery stent. Ventricle and sulci normal in size and configuration for age. No acute stroke. No acute hemorrhage. No abnormal extra-axial fluid collection. Ventricles: No hydrocephalus. No midline shift. Bones/joints: Unremarkable. No acute fracture. Soft tissues: Unremarkable. Sinuses: Unremarkable as visualized. No acute sinusitis. IMPRESSION: No acute stroke or hemorrhage. Cavernous and supraclinoid left internal carotid artery stent. Communications: Call Doctor Stroke Electronically signed by: Shahba Diaz M.D. 03/08/24 23:18 PM Head CTA 03/08/24 22:36 CR Exam(s): CTA HEAD With Contrast IV Amt: 118 ML OPTIRAY 320 EXAM: CT Angiography Head With Intravenous Contrast CLINICAL HISTORY: R hand numb,vertigo, hx stent/cva. TECHNIQUE: Axial computed tomographic angiography images of the head with intravenous contrast. CTDI is 22.84 mGy and DLP is 11.42 mGy-cm. Automated exposure control was utilized for the study. A dose lowering technique was utilized adhering to the principles of ALARA. 3D and MIP reconstructed images were created and reviewed. CONTRAST: Patient received 118 ML OPTIRAY 320 of IV contrast COMPARISON: CT Brain 03-08-2024. FINDINGS: Right internal carotid artery: No acute abnormality. Intracranial segment is patent with no significant stenosis. No aneurysm. Right anterior cerebral artery: Unremarkable. No occlusion or significant stenosis. No aneurysm. Right middle cerebral artery: Unremarkable. No occlusion or significant stenosis. No aneurysm. Right posterior cerebral artery: Unremarkable. No occlusion or significant stenosis. No aneurysm. Right vertebral artery: Unremarkable as visualized. Left internal carotid artery: Patent cavernous and supraclinoid left internal carotid artery stent. No aneurysm. Left anterior cerebral artery: Unremarkable. No occlusion or significant stenosis. No aneurysm. Left middle cerebral artery: Unremarkable. No occlusion or significant stenosis. No aneurysm. Left posterior cerebral artery: Unremarkable. No occlusion or significant stenosis. No aneurysm. Left vertebral artery: Unremarkable as visualized. Basilar artery: Unremarkable. No occlusion or significant stenosis. No aneurysm. IMPRESSION: No large vessel occlusion. Patent left internal carotid artery cavernous and supraclinoid segment stent. No aneurysm identified. Communications: Call Doctor Stroke Electronically signed by: Shahab Diaz M.D. 03/08/24 23:52 PM Neck CTA 03/08/24 22:36 CR Exam(s): CTA NECK With Contrast IV Amt: 118 ML OPTIRAY 320 EXAM: CT Angiography Neck With Intravenous Contrast CLINICAL HISTORY: R hand numb,vertigo, hx stent/cva. TECHNIQUE: Routine carotid CT angiography protocol was performed with intravenous contrast. NASCET criteria using the distal ICAs for comparison were used for evaluation of stenoses. CTDI is 12.49 mGy and DLP is 450.09 mGy-cm. Automated exposure control was utilized for the study. A dose lowering technique was utilized adhering to the principles of ALARA. 3D and MIP reconstructed images were created and reviewed. CONTRAST: Patient received 118 ML OPTIRAY 320 of IV contrast COMPARISON: CT cervical spine 02/24/2022. FINDINGS: VASCULATURE: Right common carotid artery: Unremarkable. No occlusion or significant stenosis. No dissection. Right internal carotid artery: Mild calcified plaque at the right carotid bulb without a hemodynamically significant stenosis. No dissection. Right external carotid artery: Unremarkable. No occlusion. Right vertebral artery: Unremarkable. No occlusion or significant stenosis. No dissection. Left common carotid artery: Unremarkable. No occlusion or significant stenosis. No dissection. Left internal carotid artery: Unremarkable. Extracranial segment is patent with no occlusion or significant stenosis. No dissection. Left external carotid artery: Unremarkable. No occlusion. Left vertebral artery: Unremarkable. No occlusion or significant stenosis. No dissection. NECK: Bones/joints: Extensive anterior and posterior fusion hardware including a corpectomy at C5 and mild wedge compression deformities of T3 and T4.. No acute fracture. Soft tissues: Unremarkable. Lung apices: Clear. CAROTID STENOSIS REFERENCE USING NASCET CRITERIA: % ICA stenosis = (1 - narrowest ICA diameter/diameter of distal cervical ICA) x 100. Mild - <50% stenosis. Moderate - 50-69% stenosis. Severe - 70-94% stenosis. Near occlusion - 95-99% stenosis. Occluded - 100% stenosis. IMPRESSION: No hemodynamically significant stenosis. Communications: Call Doctor Stroke Electronically signed by: Shahab Diaz M.D. 03/08/24 23:57 PM Brain MRI 03/09/24 03:57 MR brain wo/w con CLINICAL HISTORY: stroke like symptoms TECHNIQUE: Multiplanar and multisequence MR images of the brain were obtained prior to and following administration of gadolinium contrast. Comparison: Comparison is made to CT head 03/08/2024 FINDINGS: No abnormal restricted diffusion is identified. The white matter is unremarkable. The ventricular system is normal in appearance. No mass or abnormal enhancement is seen. There is no mass effect or midline shift. There is no evidence of acute intraparenchymal hemorrhage. No extra axial fluid collections are seen. The corpus callosum, pituitary gland, and cerebellar tonsils appear grossly unremarkable. Flow voids of the major intracranial arterial vessels are identified. The imaged portions of the paranasal sinuses, mastoid air cells, and orbits are unremarkabl e. IMPRESSION: No acute abnormalities. ACT 112: Negative or not required by law. Electronically signed by: Ruben Gutierrez M.D. 03/09/2024 10:12 AM Medications Administered Home Medications Medication Instructions Recorded Confirmed Last Taken acetaminophen 325 mg tablet 650 mg PO Q6H PRN Pain 03/09/24 03/09/24 Unknown (Tylenol) aspirin 81 mg chewable tablet 81 mg PO DAILY 03/09/24 03/09/24 03/08/24 atorvastatin 40 mg tablet 40 mg PO QPM 03/09/24 03/09/24 03/08/24 [id number]-[id number]-[id number] 1 tab PO Q4H PRN Headache 03/09/24 03/09/24 Unknown 50 mg-325 mg-40 mg tablet calcium carbonate 600 mg-vitamin 1 tab PO DAILY 03/09/24 03/09/24 03/08/24 D3 10 mcg (400 unit) tablet (Calcium 600 + D(3)) cholecalciferol (vitamin D3) 25 25 mcg PO DAILY 03/09/24 03/09/24 03/08/24 mcg (1,000 unit) capsule (Vitamin D3) morphine 15 mg immediate release 15 mg PO Q6H PRN Pain 03/09/24 03/09/24 Unknown tablet morphine 15 mg tablet,extended 15 mg PO Q12H PRN Pain 03/09/24 03/09/24 Unknown release ondansetron HCl 4 mg tablet 4 mg PO Q8H PRN NAUSEA/VOMITING 03/09/24 03/09/24 Unknown riboflavin (vitamin B2) 400 mg 400 mg PO DAILY 03/09/24 03/09/24 03/08/24 tablet ticagrelor 90 mg tablet (Brilinta) 90 mg PO BID 03/09/24 03/09/24 03/08/24 venlafaxine 37.5 mg 37.5 mg PO QAM 03/09/24 03/09/24 03/08/24 capsule,extended release 24 hr Active Medications Generic Name Dose Route Start Last Admin Trade Name Freq PRN Reason Stop Dose Admin Aspirin 81 mg 03/09/24 09:00 03/09/24 08:29 Aspirin 81 Mg Ectab PO 04/08/24 08:59 81 mg DAILY RAFAL Administration Calcium/Vitamin D 1 tab 03/09/24 09:00 03/09/24 08:29 Calcium 600mg + Vit D 400 Iu Tab PO 04/08/24 08:59 1 tab DAILY RAFAL Administration Sodium Chloride 1,000 mls @ 80 mls/hr 03/09/24 03:57 03/09/24 05:14 Nss IV 03/09/24 16:26 80 mls/hr .[id number] RAFAL Administration Ticagrelor 90 mg 03/09/24 09:00 03/09/24 08:29 Ticagrelor 90 Mg Tab PO 04/08/24 08:59 90 mg BID RAFAL Administration Venlafaxine HCl 37.5 mg 03/09/24 09:00 03/09/24 08:29 Venlafaxine Hcl Xr 37.5 Mg Capxr PO 04/08/24 08:59 37.5 mg QAM RAFAL Administration Vitamin D 25 mcg 03/09/24 09:00 03/09/24 08:29 Cholecalciferol 25 Mcg (1000 Units) Tab PO 04/08/24 08:59 25 mcg DAILY RAFAL Administration
[2024-03-09] MEDS: ATORVASTATIN 40 MG TAB PO SCH (20:08)
[2024-03-10 07:13] LABS: Basophils # (auto) 0.05 K/uL (0.00-0.20); Basophils % (auto) 1.1 %; Eosinophils # (auto) 0.17 K/uL (0.00-0.50); Eosinophils % (auto) 3.9 %; Hematocrit (blood only) 36.9 % (37.0-47.0); Hemoglobin 12.1 g/dl (12.0-16.0); Immature Granulocytes # (auto) 0.01 K/uL (0.01-0.20); Immature Granulocytes % (auto) 0.2 %; Lymphocytes # (auto) 1.11 K/uL (1.20-3.40); Lymphocytes % (auto) 25.2 %; Mean Corpuscular Hemoglobin 30.6 pg (25.0-34.0); Mean Corpuscular Hgb Conc 32.8 g/dL (32.0-36.0); Mean Corpuscular Volume 93.4 fL (80.0-100.0); Mean Platelet Volume 10.2 fL (9.4-12.4); Monocytes # (auto) 0.41 K/uL (0.11-0.59); Monocytes % (auto) 9.3 %; Neutrophils # (auto) 2.65 K/uL (1.40-6.50); Neutrophils % (auto) 60.3 %; Platelet Count 203 K/uL (130-400); RDW Coefficient of Variation 12.9 % (11.5-14.5); RDW Standard Deviation 44.4 fL (36.4-46.3); Red Blood Count 3.95 M/uL (4.20-5.40)
[2024-03-10 07:28] LABS: BUN Creatinine Ratio 20.3 (10-20); Calcium 8.8 mg/dl (8.6-10.3); Creatinine Clr Calc Pharmacy 96.1 ml/min; Est GFR (African American) 110.7 ml/min; Est GFR (Non-African American) 95.5 ml/min; Magnesium 2.3 mg/dl (1.7-2.4); Phosphorus 3.6 mg/dl (2.5-4.9); Potassium 3.7 mmol/L (3.5-5.1)
[2024-03-10] MEDS: ACETAMINOPHEN 325 MG TAB PO PRN (07:30)
--- NOTE | 2024-03-10 08:02 | Hospitalist Progress Note ---
Date of Service March 10, 2024 Assessment & Plan (1) Stroke-like symptoms: Plan: Ms. 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 Initially imaging negative, however, MRI c-spine and t-spine ordered to r/o possible MS. Per admitting provider: "Per neurosurgery notes in epic patient underwent second endovascular treatment of aneurysm with a second overlapping diverting stent placed on 08/28/2023 and she was on aspirin and Plavix. Patient had angiogram on 01/10/2024 with no evidence of in-stent stenosis or thrombosis and it was decided to stop Plavix and continue aspirin. On 02/01/2024 she presented to [facility] with signs of acute ischemic stroke. Patient reported slurred speech and headaches which are going on for 1-1 and half weeks since Plavix was stopped. Emergent cerebral angiogram done which showed in-stent thrombosis and proceeded with successful mechanical thrombectomy and following the procedure her speech recovered well. Brain MRI showed no evidence of ischemic injury. She was started back on Plavix but was not responsive with elevated PRU level and therefore started on Brilinta 90 mg twice daily and continued aspirin 81 mg p.o. daily" Pending PT eval and MRI c-spine/t-spine #Strokelike symptoms Some numbness in right hand and weakness in the right lower extremity Initial workup with CT head and CTA head and neck unremarkable Patent left internal carotid artery cavernous and supraclinoid segment stent S/p stents as mentioned in H&P MRI Brain normal ECHO without ASD/PFO, mild LVH A1c 5.5, LDL 10 PT OT: possible SNF, pending PT Speech evaluation: regular diet Continue DAPT and statin Neurology -Ordered MRI C-spine and T-spine given r/o MS lesions #Left ICA stenting 2021 c/b restenosis #History of stroke Continue DAPT and statin #Chronic pain Continue home pain medications #Hyperlipidemia Statin, LDL at goal DVT prophylaxis lovenox Disposition Telemetry Full code. Admission and Anticipated Discharge Date Admission Date: March 09, 2024 Subjective NAEO Reports still with RUE (hand to elbow) and sole of right foot tingling Speech seems to have resolved Denies any new neurologic deficits, denies any chest pain or palpitations Physical Exam Constitutional: WD/WN, vitals as above Respiratory: normal respiratory effort, lungs clear to auscultation Cardiovascular: RRR, no murmur, no edema Neurologic: CNII-CNXII in tact. Moving all extremities equally, able to bend right arm and move hands to demonstrate locality of symptoms, able to stand to walk to wheelchair transport Results & Data Results & Data Vital Signs (Past 12 Hours) Vital Signs Temp Pulse Pulse Resp BP BP Pulse Ox 03/10/24 07:40 36.6 C 74 18 123/79 97 03/10/24 03:00 36.7 C 70 17 120/72 95 03/09/24 23:36 71 03/09/24 23:02 36.9 C 78 17 115/74 94 O2 Del Method 03/10/24 07:40 Room Air 03/10/24 03:00 Room Air 03/09/24 23:36 03/09/24 23:02 Room Air Laboratory Results Short CBC 03/10/24 Range/Units 06:26 WBC 4.40 L (4.8-10.8) K/ul Hgb 12.1 (12.0-16.0) g/dl Hct 36.9 L (37.0-47.0) % Plt Count 203 (130-400) K/uL BMP 03/10/24 06:26 Sodium 143 Potassium 3.7 Chloride 109 H Carbon Dioxide 31 BUN 12 Creatinine 0.59 L Glucose 112 H Calcium 8.8 Medications Administered Home Medications Medication Instructions Recorded Confirmed Last Taken acetaminophen 325 mg tablet 650 mg PO Q6H PRN Pain 03/09/24 03/09/24 Unknown (Tylenol) aspirin 81 mg chewable tablet 81 mg PO DAILY 03/09/24 03/09/24 03/08/24 atorvastatin 40 mg tablet 40 mg PO QPM 03/09/24 03/09/24 03/08/24 [id number]-mygqyetnhrmmh-dzixnpzd 1 tab PO Q4H PRN Headache 03/09/24 03/09/24 Unknown 50 mg-325 mg-40 mg tablet calcium carbonate 600 mg-vitamin 1 tab PO DAILY 03/09/24 03/09/24 03/08/24 D3 10 mcg (400 unit) tablet (Calcium 600 + D(3)) cholecalciferol (vitamin D3) 25 25 mcg PO DAILY 03/09/24 03/09/24 03/08/24 mcg (1,000 unit) capsule (Vitamin D3) morphine 15 mg immediate release 15 mg PO Q6H PRN Pain 03/09/24 03/09/24 Unknown tablet morphine 15 mg tablet,extended 15 mg PO Q12H PRN Pain 03/09/24 03/09/24 Unknown release ondansetron HCl 4 mg tablet 4 mg PO Q8H PRN NAUSEA/VOMITING 03/09/24 03/09/24 Unknown riboflavin (vitamin B2) 400 mg 400 mg PO DAILY 03/09/24 03/09/24 03/08/24 tablet ticagrelor 90 mg tablet (Brilinta) 90 mg PO BID 03/09/24 03/09/24 03/08/24 venlafaxine 37.5 mg 37.5 mg PO QAM 03/09/24 03/09/24 03/08/24 capsule,extended release 24 hr Active Medications Generic Name Dose Route Start Last Admin Trade Name Freq PRN Reason Stop Dose Admin Acetaminophen 650 mg 03/09/24 03:57 03/10/24 07:30 Acetaminophen 325 Mg Tab PO 04/08/24 03:56 650 mg Q4H PRN Administration Pain or Fever Aspirin 81 mg 03/09/24 09:00 03/09/24 08:29 Aspirin 81 Mg Ectab PO 04/08/24 08:59 81 mg DAILY RAFAL Administration Atorvastatin Calcium 40 mg 03/09/24 21:00 03/09/24 20:34 Atorvastatin 40 Mg Tab PO 04/08/24 20:59 40 mg QPM RAFAL Administration Calcium/Vitamin D 1 tab 03/09/24 09:00 03/09/24 08:29 Calcium 600mg + Vit D 400 Iu Tab PO 04/08/24 08:59 1 tab DAILY RAFAL Administration Ticagrelor 90 mg 03/09/24 09:00 03/09/24 20:34 Ticagrelor 90 Mg Tab PO 04/08/24 08:59 90 mg BID RAFAL Administration Venlafaxine HCl 37.5 mg 03/09/24 09:00 03/09/24 08:29 Venlafaxine Hcl Xr 37.5 Mg Capxr PO 04/08/24 08:59 37.5 mg QAM RAFAL Administration Vitamin D 25 mcg 03/09/24 09:00 03/09/24 08:29 Cholecalciferol 25 Mcg (1000 Units) Tab PO 04/08/24 08:59 25 mcg DAILY RAFAL Administration
[2024-03-10] MEDS: ENOXAPARIN INJ 40 MG/0.4 ML SYR SQ SCH (08:23)
[2024-03-10] MEDS: GADOBUTROL 30ML VIAL IV ONE (10:40)
--- NOTE | 2024-03-10 11:03 | Magnetic Resonance Report ---
CERVICAL SPINE MRI WITH AND WITHOUT CONTRAST HISTORY: Stroke like symptoms. Vertigo. TECHNIQUE: Multiplanar multisequence MRI of the cervical spine was performed both before and after th e use of intravenous contrast. COMPARISON STUDY: Cervical spine CT 02/24/2022. FINDINGS: Anterior cervical discectomy and fusion from C4 through C6. There is posterior decompressio n and fusion from C2 through T3. The visualized posterior fossa is unremarkable. The cervical spinal cord is normal and course, caliber, and signal intensity. Prevertebral soft tissues and the C1-C2 int erval are intact. Mild disc space narrowing at C3-C4. The C6-C7 disc space is obscured by metallic ar tifact. There is a chronic compression deformity at T2, unchanged. Postcontrast sequences show no are as of abnormal enhancement. No acute fracture or subluxation. C2-C3: No significant central canal or neural foraminal narrowing. C3-C4: No significant central canal or neural foraminal narrowing. C4-C5: No significant central canal or neural foraminal narrowing. C5-C6: No significant central canal or neural foraminal narrowing. C6-C7: No significant central canal or neural foraminal narrowing. C7-T1: No significant central canal or neural foraminal narrowing. IMPRESSION: 1. No abnormal signal intensity or enhancement within the cervical spinal cord to suggest demyelinati on. 2. Extensive postoperative changes within the cervical spine. No significant central canal or neural foraminal narrowing. ACT 112: Negative or not required by law. Electronically signed by: Niels De La Rosa M.D. 03/10/2024 11:01 AM
--- NOTE | 2024-03-10 11:10 | Magnetic Resonance Report ---
THORACIC SPINE MRI WITH AND WITHOUT CONTRAST HISTORY: Vertigo. Right hand weakness. TECHNIQUE: Multiplanar multisequence MRI of the thoracic spine was performed both before and after th e intravenous administration of contrast. COMPARISON: Thoracic spine radiograph 02/11/2016. FINDINGS: Posterior fusion hardware seen from C2 through T3. Chronic compression deformity at T2, unchanged. No acute fracture or subluxation within the thoracic spine. There is 9 mm slightly T2 hyperintense, T1 isointense lesion within the T4 vertebral body. This favors a hemangioma. This demonstrates faint enh ancement. No additional osseous lesions identified. Paravertebral soft tissues are unremarkable. Post contrast sequences show no areas of abnormal enhancement. No disc herniations. No significant central canal or neural foraminal narrowing. Mild disc space narrowing within the upper thoracic spine. Ther e is an abnormal appearance to the spinal cord at the T6 and T7 levels. The spinal cord appears to be flattened and displaced anteriorly abutting the posterior cortex of the T6 vertebral body best seen on axial image 18. The midesophagus the spinal cord demonstrates increased T2 signal. No abnormal enh ancement. The configuration of the spinal cord raise the possibility of a ventral cord herniation at this location. IMPRESSION: 1. Abnormal appearance to the thoracic spinal cord at the T6 and T7 levels as described above. This i s highly suspicious for a ventral cord herniation. 2. There is mild increased T2 signal within the cord at the C6-C7 levels which likely corresponds to the suspected ventral cord herniation. A focus of demyelination is considered less likely but not ent irely excluded. No abnormal enhancement. ACT 112: Negative or not required by law. Electronically signed by: Niels De La Rosa M.D. 03/10/2024 11:09 AM
[2024-03-10] MEDS: BUTALBITAL/ACETAMIN/CAFFEINE TAB PO PRN (11:32)
[2024-03-10] MEDS ORDERED: STROKE PATIENT DISCHARGE STA (12:51)
--- NOTE | 2024-03-10 12:52 | Discharge Summary ---
Discharge Summary Date of Service March 10, 2024 Principal Dx & Hospital Course #1 = Principal Diagnosis (1) Stroke-like symptoms: Ms. 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 Initially imaging negative, however, MRI c-spine and t-spine ordered to r/o possible MS. Per admitting provider: "Per neurosurgery notes in epic patient underwent second endovascular treatment of aneurysm with a second overlapping diverting stent placed on 08/28/2023 and she was on aspirin and Plavix. Patient had angiogram on 01/10/2024 with no evidence of in-stent stenosis or thrombosis and it was decided to stop Plavix and continue aspirin. On 02/01/2024 she presented to [facility] with signs of acute ischemic stroke. Patient reported slurred speech and headaches which are going on for 1-1 and half weeks since Plavix was stopped. Emergent cerebral angiogram done which showed in-stent thrombosis and proceeded with successful mechanical thrombectomy and following the procedure her speech recovered well. Brain MRI showed no evidence of ischemic injury. She was started back on Plavix but was not responsive with elevated PRU level and therefore started on Brilinta 90 mg twice daily and continued aspirin 81 mg p.o. 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 Administered 1x Decadron 8mg Neurosurgery accepted at [facility]. #Strokelike symptoms Some numbness in right hand and weakness in the right lower extremity Initial workup with CT head and CTA head and neck unremarkable Patent left internal carotid artery cavernous and supraclinoid segment stent S/p stents as mentioned in H&P MRI Brain normal ECHO without ASD/PFO, mild LVH A1c 5.5, LDL 10 PT OT: possible SNF, pending PT Speech evaluation: regular diet Continue DAPT and statin MRI T/C spine c/f ventral cord herniation, transfer for neurosurgery eval #Left ICA stenting 2021 c/b restenosis #History of stroke Continue DAPT and statin #Chronic pain Continue home pain medications #Hyperlipidemia Statin, LDL at goal Notes For Next Care Provider Medication Changes From Visit None Admission HPI Per Admitting Provider 64-year-old female with past medical history significant for stroke with cerebral ischemia, aneurysm of left internal carotid artery, early cirrhosis, chronic back pain, migraine, opioid dependence, history of right flank hematoma, history of 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 " Per neurosurgery notes in epic patient underwent second endovascular treatment of aneurysm with a second overlapping diverting stent placed on 08/28/2023 and she was on aspirin and Plavix. Patient had angiogram on 01/10/2024 with no evidence of in-stent stenosis or thrombosis and it was decided to stop Plavix and continue aspirin. On 02/01/2024 she presented to [facility] with signs of acute ischemic stroke. Patient reported slurred speech and headaches which are going on for 1-1 and half weeks since Plavix was stopped. Emergent cerebral angiogram done which showed in-stent thrombosis and proceeded with successful mechanical thrombectomy and following the procedure her speech recovered well. Brain MRI showed no evidence of ischemic injury. She was started back on Plavix but was not responsive with elevated PRU level and therefore started on Brilinta 90 mg twice daily and continued aspirin 81 mg p.o. daily. Patient seem to suffer from occasional headaches or complaint accompanied by nausea." Today she was in the grocery store while she was walking she suddenly felt dizzy and felt like passing out and numbness in the right hand. She ambulated holding the cart. Somehow came home, and called neurosurgery and was advised to come to the ER. Later she also developed right lower extremity weakness. Initial CT head and CTA head and neck were unremarkable. ER talked with the [facility] neurology on-call Dr. Khari Gastelum who recommended patient to admitted for MRI and PT OT evaluation and to continue current antiplatelet regimen. And also recommended to do bedside dysphagia screen and speech evaluation and lipid profile and HbA1c levels. Patient currently resting comfortably. Still has right hand numbness and paresthesias and right lower extremity weakness. Speech is okay. No facial droop. Able to give her history. Complains of some headaches. Patient states since last episode in [place] she is having Vision issues and supposed to see eye doctor. No fevers. No sore throat. Currently no chest pain. When the episode happened today she was breathing heavily. Currently no nausea. No abdominal pain. Normal bowel and bladder movements. Hemodynamics are okay. Past medical history. As mentioned above Past surgical history. Carotid internal catheter placement. Vertebral artery catheter placement. Cholecystectomy and hysterectomy Social history. Former smoker. No alcohol use. No drug use. Family history. Father side had heart disease. Mother had diabetes Admission Exam Per Admitting Provider General- Not in distress. Head- atraumatic Eyes- PERRL. ENT- oropharynx clear Neck- supple, no JVD. Lungs- clear to auscultation no wheezing or crackles Heart- regular rate and rhythm; no murmur, no gallop Abdomen- normal bowel sounds, soft, nontender, no distension. Extremities- no pretibial edema, no erythema seen Neuro- alert, oriented ; PERRL, no facial palsy; no dysarthria; tounge midline power 5/5 in all extremities except right lower extremity, right lower ext power 1-2/5; no pronator drift; coordination of movements normal, sensations intact, position sense intact Skin- warm & dry Discharge Exam Constitutional WD/WN, vitals as above Respiratory normal respiratory effort, lungs clear to auscultation Cardiovascular RRR, no murmur, no edema Neurologic RLE strength/RUE strength variable, 3/5, LUE/LLE 5/5 paraesthesia noted CNII-XII intact Updated Medication List Medication Instructions Recorded Confirmed Type acetaminophen 325 mg tablet 650 mg PO Q6H PRN Pain 03/09/24 03/09/24 History (Tylenol) aspirin 81 mg chewable tablet 81 mg PO DAILY 03/09/24 03/09/24 History atorvastatin 40 mg tablet 40 mg PO QPM 03/09/24 03/09/24 History bveinkglej-hbzoggraloqhi-xriehqqa 1 tab PO Q4H PRN Headache 03/09/24 03/09/24 History 50 mg-325 mg-40 mg tablet calcium carbonate 600 mg-vitamin 1 tab PO DAILY 03/09/24 03/09/24 History D3 10 mcg (400 unit) tablet (Calcium 600 + D(3)) cholecalciferol (vitamin D3) 25 25 mcg PO DAILY 03/09/24 03/09/24 History mcg (1,000 unit) capsule (Vitamin D3) morphine 15 mg immediate release 15 mg PO Q6H PRN Pain 03/09/24 03/09/24 History tablet morphine 15 mg tablet,extended 15 mg PO Q12H PRN Pain 03/09/24 03/09/24 History release ondansetron HCl 4 mg tablet 4 mg PO Q8H PRN NAUSEA/VOMITING 03/09/24 03/09/24 History riboflavin (vitamin B2) 400 mg 400 mg PO DAILY 03/09/24 03/09/24 History tablet ticagrelor 90 mg tablet (Brilinta) 90 mg PO BID 03/09/24 03/09/24 History venlafaxine 37.5 mg 37.5 mg PO QAM 03/09/24 03/09/24 History capsule,extended release 24 hr Hospital Stay Data Consultations 03/09/24 00:03 ED Decision to Admit Stat 03/09/24 08:00 Consult Neurology Routine 03/10/24 11:25 Consult Orthopedic Spine Surgery Routine 03/10/24 12:33 Burn CD for patient Routine 03/10/24 12:34 Burn CD for patient Stat Diagnostic Imagining Performed 03/08/24 22:33 CT head/brain wo con Stat 03/08/24 22:36 CT angio head w con Stat CT angio neck with con Stat 03/09/24 03:57 MR brain wo/w con Urgent 03/10/24 07:05 MRI Cervical [MR cervical spine wo/w con] Urgent MRI Thoracic [MR thoracic spine wo/w con] Urgent Pending Results Patient Have Any Pending Studies at Discharge: No Discharge Instructions Given to Patient (Per Discharging Provider) Ms. 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 Initially imaging negative, however, MRI c-spine and t-spine ordered to r/o possible Per admitting provider: "Per neurosurgery notes in epic patient underwent second endovascular treatment of aneurysm with a second overlapping diverting stent placed on 08/28/2023 and she was on aspirin and Plavix. Patient had angiogram on 01/10/2024 with no evidence of in-stent stenosis or thrombosis and it was decided to stop Plavix and continue aspirin. On 02/01/2024 she presented to [facility] with signs of acute ischemic stroke. Patient reported slurred speech and headaches which are going on for 1-1 and half weeks since Plavix was stopped. Emergent cerebral angiogram done which showed in-stent thrombosis and proceeded with successful mechanical thrombectomy and following the procedure her speech recovered well. Brain MRI showed no evidence of ischemic injury. She was started back on Plavix but was not responsive with elevated PRU level and therefore started on Brilinta 90 mg twice daily and continued aspirin 81 mg p.o. 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 Neurosurgery accepted at [facility]. #Strokelike symptoms Some numbness in right hand and weakness in the right lower extremity Initial workup with CT head and CTA head and neck unremarkable Patent left internal carotid artery cavernous and supraclinoid segment stent S/p stents as mentioned in H&P MRI Brain normal ECHO without ASD/PFO, mild LVH A1c 5.5, LDL 10 PT OT: possible SNF, pending PT Speech evaluation: regular diet Continue DAPT and statin MRI T/C spine c/f ventral cord herniation, transfer for neurosurgery eval IV decadron 8mg x 1 #Left ICA stenting 2021 c/b restenosis #History of stroke Continue DAPT and statin #Chronic pain Continue home pain medications #Hyperlipidemia Statin, LDL at goal Total Time Total Time Spent Total Time Spent (In Minutes): 45
--- NOTE | 2024-03-10 13:14 | Communication Note ---
Date of Service: March 10, 2024 Communicated directly with primary/hospitalist team regarding MRI spine findings Agree with transfer for NSG evaluation
[2024-03-10] MEDS: dexAMETHasone 8 MG in SYRINGE 0 ML IV ONE (13:42)
[2024-03-10] MEDS: MoRPHine SULFATE IR 15 MG TAB (IMMEDIATE RELEASE) PO PRN (15:43)
== END 2024-03-10 16:42 | disposition short-term general hospital (02) | DRG 57 ==
LOC: ED 22:22 → EDINP 03-09 02:40 → 2E 03-09 12:54